=== PATIENT | male | born 1990 | race Caucasian/White ===

== ENCOUNTER 2024-11-26 14:00 | Emergency (ER) | payer OTHER, SELFPAY ==
[2024-11-26 14:08] VITALS: BP 167/105
[2024-11-26 14:24] LABS: % Basophils 0.7 % (0-2); % Eosinophils 3.8 % (0-6); % Immature Granulocytes 0.2 % (0-0.5); % Lymphocytes 31.1 % (20.5-51.1); % Monocytes 9.7 % (1.7-9.3); % Neutrophils 54.5 % (42.2-75.2); Absolute Eosinophils 0.2 10^3/uL (0-0.7); Absolute Lymphocytes 1.9 10^3/uL (1.2-3.4); Absolute Monocytes 0.6 10^3/uL (0.1-0.6); Absolute Neutrophils 3.3 10^3/uL (1.4-6.5); Hematocrit 45.6 % (39.0-52.0); Hemoglobin 16.9 g/dL (13.0-18.0); Mean Corp Hgb Conc. 37.1 g/dL (33.0-37.0); Mean Corpuscular Hgb 32.1 pg (27.0-31.0); Mean Corpuscular Volume 86.7 fL (80.0-94.0); Mean Platelet Volume 8.5 fL (7.4-10.4); Nucleated Red Blood Cells % 0 % (-); Platelet Count 310 10^3/uL (130-400); Red Blood Cell Count 5.26 10^6/uL (4.70-6.10); Red Cell Dist. Width 11.5 % (11.5-14.5)
[2024-11-26 14:34] LABS: ALT (SGPT) 42 U/L (0-50); AST (SGOT) 44 U/L (17-59); Albumin 5.1 g/dl (3.5-5.0); Alkaline Phosphatase 81 U/L (38-126); Blood Urea Nitrogen 14 mg/dl (9-20); Calcium 10.2 mg/dl (8.4-10.2); Carbon Dioxide 26 mmol/L (22-30); Chloride 102 mmol/L (98-107); Glucose 105 mg/dl (70-99); Lipase 104 U/L (23-300); Sodium 141 mmol/L (135-145); Total Bilirubin 1.6 mg/dl (0.2-1.3); Total Protein 7.9 g/dl (6.3-8.2); eGFR > 60.00
[2024-11-26 14:43] LABS: Troponin I < 0.012 ng/ml
[2024-11-26 16:32] VITALS: BP 158/91
--- NOTE | 2024-11-26 16:36 | ED.GENMED ---
History of Present Illness
General
Chief Complaint: Abdominal Pain
Source: patient
Exam Limitations: none
Time Seen by Provider: 11/26/24 15:59
Nursing documentation reviewed up to this point in time: agreed with
History of Present Illness
History of Present Illness:
34-year-old male with no significant past medical history states for about 3 weeks he has had chest and epigastric pain. He states the past few days it has been a lot worse. He has tried Tums with no help. His appetite has been decreased past few
days. He states the pain is like a constant pressure, he has been burping more, when he lays flat at night he finds himself getting up to vomit small amounts with sour taste in his mouth. He states he sees some blood in the emesis.
He started Prilosec 3 days ago but it does not seem to help.
He denies lightheadedness or dizziness. He denies change in the color of his stool.
Past History
Past History
ED Past Medical History: None
ED Past Surgical History: None
Social History
Tobacco: Non-smoker
Alcohol: Occasional
Personal: Single
Living: alone
Employment: Employed (Insurance auto claims)
Review of Systems
Review of Systems
Allergies reviewed?: Yes
All Other Systems: ROS reviewed and negative except as documented in HPI and ROS
Constitutional: Denies fever or fatigue
Respiratory: Denies trouble breathing
Cardiac: Reports chest pain (points up and down his esophagus)
ABD/GI: Reports abdominal pain, nausea, vomiting and anorexia; Denies diarrhea, bloody stools or black stools
Musculoskeletal: Reports no symptoms
Skin: Reports no symptoms
Neurological: Reports no symptoms
Phy Exam
Physical Exam
Physical Exam:
GENERAL: No acute distress. A&Ox3.
CONSTITUTIONAL: Afebrile.
EYES: clear, conjunctivae normal
ENMT: moist mucus membranes, Pharynx nl
RESPIRATORY: Regular respirations, nonlabored, lungs clear.
CARDIOVASCULAR: Regular rate and rhythm, no murmurs, no rubs.
GI: Soft, nontender, normal BS
Rectal: brown stool, hematests positive
MUSCULOSKELETAL: Moves with ease. Well perfused.
SKIN: Warm, dry, pink
PSYCH: Normal mood and affect. Well kept, interactive and appropriate
NEUROLOGIC: Awake, alert and oriented. No focal neurological deficits
Course
Orders/Labs/Results
Orders:
Orders
11/26/24 14:01
Electrocardiogram (*1) Urgent
Reason for Study: Chest Pain
EKG- Treatment ONCE
11/26/24 14:16
Complete Blood Count/With Diff Urgent
Comprehensive Metabolic Panel Urgent
Lipase Urgent
Troponin I Urgent
Abnormal Lab Results
11/26/24
14:16
MCH 32.1 H pg
(27.0-31.0)
MCHC 37.1 H g/dL
(33.0-37.0)
Monocytes % 9.7 H %
(1.7-9.3)
Glucose 105 H mg/dl
(70-99)
Total Bilirubin 1.6 H mg/dl
(0.2-1.3)
Albumin 5.1 H g/dl
(3.5-5.0)
11/26/24 14:16
11/26/24 14:16
Vital Signs
Initial and Last Documented VS:
Initial Vital Signs
Temp Pulse Resp BP Pulse Ox
98.4 F 92 18 167/105 97
11/26/24 14:08 11/26/24 14:08 11/26/24 14:08 11/26/24 14:08 11/26/24 14:08
Last Documented Vital Signs
Temp Pulse Resp BP Pulse Ox
98.4 F 67 18 158/91 99
11/26/24 14:08 11/26/24 16:32 11/26/24 16:32 11/26/24 16:32 11/26/24 16:32
MDM/Problems Addressed
Differential Diagnosis Includes:
PUD, esophagitis, Gastritis, GERD
MDM/Problems Addressed:
34-year-old male with no significant past medical history states for about 3 weeks he has had chest and epigastric pain. He states the past few days it has been a lot worse. He has tried Tums with no help. His appetite has been decreased past few
days. He states the pain is like a constant pressure, he has been burping more, when he lays flat at night he finds himself getting up to vomit small amounts with sour taste in his mouth. He states he sees some blood in the emesis.
He started Prilosec 3 days ago but it does not seem to help.
He denies lightheadedness or dizziness. He denies change in the color of his stool.
NAD
EKG NSR with RBBB
3:00 PM:
CBC, CMP with no clinically significant abnormality
Lipase within normal limits
Hemodynamically stable, no obvious active bleeding, stool hematests positive, stable for discharge
Rx for Carafate and Protonix sent to pt pharmacy
[place] texted GI front end ui developer to get him in sooner. She replied in confirmation
*EKG
EKG Intrepretation Date: 11/26/24
Interpretation: abnormal
Heart Rate: 86
Rate: normal
Rhythm: sinus
[place]: normal axis
Interval: normal interval
QRS Pattern: right bundle branch block
Ischemia: no ischemia
*Critical Care Note
Total Time (30-74mins, 75-104mins- exclusive of procedures): Not Applicable
ED Attending Note
-
Portions of this chart may have been created with voice recognition software.� Occasional wrong word or��sound alike� substitutions may have occurred due to the inherent limitations of voice recognition software.
Discharge Plan
Departure
Patient Disposition: Home (Routine Discharge)
Date of Disposition: 11/26/24
Time of Disposition: 16:27
Patient with high blood pressure during this ER visit?: No
Condition: Good
Discharge Problem:
Gastritis
Instructions: Peptic ulcers, Acid Reflux and GERD in Adults (DC), Esophagitis, Gastritis (DC)
Prescriptions:
New
sucralfate [Carafate] 1 gram tablet
1 g PO ACHS Qty: 28 0RF
pantoprazole [Protonix] 40 mg tablet,delayed release (DR/EC)
40 mg PO DAILY Qty: 30 0RF
Activity Restrictions/Additional Instructions:
As we discussed, I sent a prescription to your pharmacy for Protonix to take once daily and Carafate to take once before each meal and at bedtime
Call the GI doctors office Friday morning and make next available appointment.
I cannot diagnose bleeding from esophagitis or peptic ulcer disease (you need an endoscopy for these) but I have provided you with information about them FYI
Interventions
Interventions:
*Risk Screen - Suicide Last Done: 11/26/24 14:08
*General Assessment Last Done: 11/26/24 14:08
*Neglect/Abuse Screening Last Done: 11/26/24 14:08
*Nursing Disposition Last Done: 11/26/24 16:43
ZF-Brhxfc-Fnngkhiahc Assessment Last Done: 11/26/24 16:42
Discharge Date and Time
Discharge Date/Time: 11/26/24 16:44
Print Language: ANGUILLAN
== END 2024-11-26 16:44 | disposition home or self-care (01) ==
LOC: EMR 14:00
PROVIDERS: EMERGENCY PHYSICIAN Student in an Organized Health Care Education/Training Program; FAMILY PHYSICIAN Family Medicine
DX: K29.70 Gastritis, unspecified, without bleeding (principal); I45.10 Unspecified right bundle-branch block
CPT/HCPCS: 99283; 80053; 83690; 84484; 85025; 93005